=== PATIENT | female | born 1990 | race Caucasian/White ===

== ENCOUNTER 2017-04-19 15:05 | Emergency (ER) | payer MEDICAID, OTHER ==
[~2017-04-19] VITALS: Wt 59.0 kg
[2017-04-19] MEDS ORDERED: ACETAMINOPHEN 325 MG TAB PO STA (16:38)
--- NOTE | 2017-04-19 16:44 | ERD ---
ER Documentation Chief Complaint Date/Time DATE: 04/19/17 Chief Complaint Pelvic pain HPI The patient is a 26-year-old female, A0, who presents to the Emergency Department with complaint of pelvic pain. The patient reports that her discomfort began approximately two weeks ago, with onset of pressure-like pain to the suprapubic abdomen. Since, she has been experiencing intermittent cramping sensation to both the right and left pelvic regions. She notes that since yesterday the cramping sensations have been occurring more frequently, and therefore she decided to present to the Emergency Department for further evaluation. The patient denies any current vaginal bleeding, but admits to spotting last week. After onset of the spotting, she was seen by her JEWELER APPRENTICE and determined to have a urinary tract infection for which she was placed on a course of antibiotics. The patient reports that she completed the course of antibiotics as directed with no complication. She denies any further bleeding or any new vaginal discharge. Denies fevers, sweats, chills, vomiting, diarrhea , dysuria, hematuria, flank pain. The patient's last menstrual period was 2016 and she believes that she is approximately 7 weeks . She has not yet had an ultrasound during this . The patient also notes a history of prior ovarian cysts, and is uncertain if her current symptoms are secondary to recurrent cyst. No other complaints at this time. ROS All systems reviewed and are negative except as per history of present illness. Allergies Allergies: Coded Allergies: No Known Allergy (Unverified , 04/19/17) PMhx/Soc History of Surgery: No Anesthesia Reaction: No Hx Neurological Disorder: No Hx Respiratory Disorders: No Hx Cardiac Disorders: No Hx Psychiatric Problems: No Hx Miscellaneous Medical Probl: Yes (ovarian cysts) Hx Alcohol Use: No Hx Substance Use: No Hx Tobacco Use: No Physical Exam Vitals Vital Signs Date Time Temp Pulse Resp B/P Pulse Ox O2 Delivery O2 Flow Rate FiO2 04/19/17 20:56 97.9 74 16 113/65 100 Room Air 04/19/17 15:10 98.0 78 18 132/71 99 Physical Exam GENERAL: Well-developed, well-nourished, female, in no acute distress. HEENT: Head is normocephalic, atraumatic. No scleral pallor or icterus. Pupils equal, round and reactive to light. Extraocular movements intact. Conjunctiva pink. Moist mucous membranes. NECK: Supple. Full range of motion. RESPIRATORY: Lungs are clear to auscultation bilaterally. Equal breath sounds. Normal expiratory effort. CARDIOVASCULAR: Regular rate and rhythm. S1 and S2 normal. Distal pulses are palpable, 2+ bilaterally. Capillary refill is less than 2 seconds. GASTROINTESTINAL: Abdomen is soft, non-tender, and non-distended. No guarding, no rebound tenderness. Normal bowel sounds. FLANK: No CVA tenderness. BACK: No midline tenderness. EXTREMITIES: No clubbing, cyanosis, or edema. Normal skin perfusion. Moving all extremities. Muscle tone is normal. No focal swelling or erythema. NEUROLOGIC: The patient is alert, awake, and oriented x 3. No focal neurologic deficits. INTEGUMENT: Skin is intact. Warm and dry. PSYCHIATRIC: Cooperative. Appropriate. Result Diagram: 04/19/17 1730 Results 24 hrs Laboratory Tests Test 04/19/17 16:50 04/19/17 17:30 Urine Color YELLOW Urine Clarity SLIGHTLY CLOUDY Urine pH 5.0 Urine Specific [place] 1.033 Urine Ketones NEGATIVEmg/dL Urine Nitrite NEGATIVEmg/dL Urine Bilirubin NEGATIVEmg/dL Urine Urobilinogen NEGATIVEmg/dL Urine Leukocyte Esterase TRACELeu/ul Urine Microscopic RBC 6/HPF Urine Microscopic WBC 2/HPF Urine Squamous Epithelial Cells FEW/HPF Urine Mucus FEW/HPF Urine Hemoglobin 1+mg/dL Urine Glucose NEGATIVEmg/dL Urine Total Protein NEGATIVEmg/dl White Blood Count 9.910^3/ul Red Blood Count 4.3110^6/ul Hemoglobin 13.4g/dl Hematocrit 38.8% Mean Corpuscular Volume 90.0fl Mean Corpuscular Hemoglobin 31.1pg Mean Corpuscular Hemoglobin Concent 34.5g/dl Red Cell Distribution Width 12.1% Platelet Count 60926^3/UL Mean Platelet Volume 9.0fl Neutrophils % 67.4% Lymphocytes % 25.2% Monocytes % 6.0% Eosinophils % 0.4% Basophils % 0.7% Nucleated Red Blood Cells % 0.0/100WBC Neutrophils # 6.710^3/ul Lymphocytes # 2.510^3/ul Monocytes # 0.610^3/ul Eosinophils # 0.010^3/ul Basophils # 0.110^3/ul Nucleated Red Blood Cells # 0.010^3/ul Beta HCG, Quantitative 798857.0mIU/ml Current Medications Medications (Trade) Dose Ordered Sig/Diane Route PRN Reason Start Time Stop Time Status Last Admin Dose Admin Acetaminophen (Tylenol Tab) 650 mg ONCE STAT PO 04/19/17 16:38 04/19/17 16:40 DC 04/19/17 17:31 Procedures/MDM DIAGNOSTIC TESTS AND INTERPRETATION: PROCEDURE: OBSTETRICAL ULTRASOUND WITH ENDOVAGINAL IMAGES CLINICAL INDICATION: Pelvic pain TECHNIQUE: Multiple sonographic images of the pelvis were obtained utilizing a transabdominal and endovaginal technique. The images were reviewed on a PACS workstation. COMPARISON: None. LMP: 02/27/2017 FINDINGS: There is a single live intrauterine with heart rate of 154 beats per minute, mean sac diameter of 2.43 cm, yolk sac, and crown-rump length of 0.98 cm which is consistent with a gestational age of 7 weeks, 1 day . The estimated date of delivery by ultrasound is 12/05/2017 . The estimated gestational age by LMP is 7 weeks, 2 days . The estimated date of delivery by LMP is 12/04/2017 . The right ovary measures 2.5 x 2.4 x 2.6 cm. The left ovary is not visualized. There is normal vascular flow in the right ovary. There is a 2 cm complex cystic lesion with low level internal echoes in the right ovary which may be a hemorrhagic/corpus luteal cyst. No significant pelvic free fluid is identified. IMPRESSION: Single live intrauterine consistent with a gestational age of 7 weeks , 1 day . The estimated date of delivery is 12/05/2017 . Dating by ultrasound is within 1 day of dating by LMP. No subchorionic hemorrhage is identified. 2 cm complex cystic lesion in the right ovary may be a hemorrhagic/corpus luteal cyst. Nonvisualization of the left ovary. Physician Alex Date Time Electronically viewed and signed by Physician Alex on 04/19/2017 17:16 EMERGENCY DEPARTMENT COURSE: The patient was stable throughout the ED course. Laboratory work and diagnostic imaging performed. Tylenol was administered. After rest, the patient reports no new complaints and decreased pain. CONSULTATION: 8:41 PM: The patient's case was reviewed and discussed with Dr. Mora, JEWELER APPRENTICE on-call, including patient's recent history, clinical presentation, laboratory results and imaging findings (specifically, findings of IUP with complex cystic lesion). Dr. Mora recommends that the patient be discharged home to follow up with JEWELER APPRENTICE. She states that this is likely a normal . However, recommends providing strict return precautions. Given that the cystic lesion is noted to be within the ovary, low suspicion for heterotopic . The patient's case was reviewed and discussed with ED supervising physician, Dr. Isbell, who recommends that the patient be discharged home to follow up with JEWELER APPRENTICE as an outpatient. MEDICAL DECISION MAKING: This is a 26-year-old female presenting to the emergency department complaining of pelvic pain. On physical examination, the patient had no tenderness to palpation, no guarding, no rebound tenderness. She no tenderness at McBurney's point. No peritoneal signs. Vital signs are stable. The differential diagnosis includes, but is not limited to, molar , cholecystitis, ectopic , heterotopic , gastroenteritis, pancreatitis, appendicitis, hepatitis, bowel obstruction, diverticulitis, inflammatory bowel disease, irritable bowel syndrome, hernia, peptic ulcer disease, pyelonephritis, cystitis, HELLP syndrome, , ovarian torsion, ovarian cyst, endometriosis, PID, cervicitis, TOA. CBC reveals no leukocytosis. Hemoglobin and hematocrit are stable, no indication of severe anemia. No thrombocytopenia. Rh (+). Beta hCG is 114,640. Urinalysis showed on trace urine leukocyte esterase, but no significant bacteria or WBC, negative nitrites. Doubt urinary tract infection. Urine culture sent. Ultrasound revealed a single live intrauterine with an estimated gestational age of 7 weeks 1 days. heart tones were noted. No indication of miscarriage/. Additionally, a 2 cm complex cystic lesion was seen in the right ovary. After rest and administration of Tylenol, the patient reports no new complaints, and significantly decreased pain. Upon my review and interpretation of the patient's presentation overall ER course, I believe the patient's symptoms most consistent with pelvic pain during and ovarian cyst. There is no current indication of pyelonephritis, or acute/surgical abdomen. At this time, the patient is in stable condition with stable vital signs, and therefore can be discharged home with strict return precautions for signs of deteriorating or worsening condition. The patient is advised to follow-up with her JEWELER APPRENTICE within 1-2 days for reevaluation and further management, or return to the ER sooner for any new or worsening symptoms. She was given a copy of all of her results. I shared my medical decision-making plan with the patient at length and in great detail, and she verbally understands and agrees with the plan for further observation and care as an outpatient. At the time of discharge, all questions were answered. Departure Diagnosis: Primary Impression: Pelvic pain during in first trimester, antepartum Additional Impression: Right ovarian cyst Condition: Stable Patient Instructions: Ovarian Cyst, Pelvic Pain In : Unclear (2-3 Trimester), What Are Ovarian Cysts? Additional Instructions: Llame al doctor MAANA y murphy albin SONIA PARA DENTRO DE 1-2 GREEN.Dgale a la secretaria que nosotros le instruimos hacer esta sonia.Avise o llame si rose condicin se empeora antes de la sonia. Regresa aqui si peor o no mejor. NICHOLE WEST PA-C Apr 19, 2017 16:44
[2017-04-19 17:15] LABS: ADD UMIC YES; UR ASCORBIC ACID 40 mg/dL (NEGATIVE); UR BILIRUBIN (Dip) NEGATIVE (NEGATIVE); UR BLOOD (Dip) 1+ mg/dL (NEGATIVE); UR CLARITY SLIGHTLY CLOUDY (CLEAR); UR COLOR YELLOW (YELLOW); UR GLUCOSE (Dip) NEGATIVE (NEGATIVE); UR KETONES (Dip) NEGATIVE (NEGATIVE); UR LEUKOCYTE ESTERASE (Dip) TRACE Leu/ul (NEGATIVE); UR MUCUS FEW /HPF (NONE SEEN); UR NITRITE (Dip) NEGATIVE (NEGATIVE); UR RBC 6 /HPF (0-5); UR SPECIFIC GRAVITY (Dip) 1.033 (1.003-1.030); UR SQUAMOUS EPITHELIAL CELL FEW /HPF (FEW); UR TOTAL PROTEIN (Dip) NEGATIVE (NEGATIVE); UR UROBILINOGEN (Dip) NEGATIVE (NEGATIVE)
--- NOTE | 2017-04-19 17:16 | RADRPT ---
PROCEDURE: OBSTETRICAL ULTRASOUND WITH ENDOVAGINAL IMAGES CLINICAL INDICATION: pelvic pain, vaginal bleeding TECHNIQUE: Multiple sonographic images of the pelvis were obtained utilizing a transabdominal and endovaginal technique. The images were reviewed on a PACS workstation. COMPARISON: None. LMP: 02/27/2017 FINDINGS: There is a single live intrauterine with heart rate of 154 beats per minute, mean sa c diameter of 2.43 cm, yolk sac, and crown-rump length of 0.98 cm which is consistent with a gestati onal age of 7 weeks, 1 day . The estimated date of delivery by ultrasound is 12/05/2017 . The estimated gestational age by LMP is 7 weeks, 2 days . The estimated date of delivery by LMP is 12/04/2017 . The right ovary measures 2.5 x 2.4 x 2.6 cm. The left ovary is not visualized. There is normal vascu lar flow in the right ovary. There is a 2 cm complex cystic lesion with low level internal echoes in the right ovary which may be a hemorrhagic/corpus luteal cyst. No significant pelvic free fluid is identified. IMPRESSION: Single live intrauterine consistent with a gestational age of 7 weeks, 1 day . The estimated date of delivery is 12/05/2017 . Dating by ultrasound is within 1 day of dating by LMP. No subchorionic hemorrhage is identified. 2 cm complex cystic lesion in the right ovary may be a hemorrhagic/corpus luteal cyst. Nonvisualization of the left ovary. RPTAT: EE Physician Alex Date Time Electronically viewed and signed by Physician Alex on 04/19/2017 17:16 /
[2017-04-19 17:37] LABS: BASOPHIL # 0.1 10^3/ul (0.0-0.1); BASOPHILS % 0.7 % (0.0-2.0); EOSINOPHILS % 0.4 % (0.0-7.0); HEMATOCRIT 38.8 % (37.0-47.0); HEMOGLOBIN 13.4 g/dl (12.0-16.0); LYMPHOCYTES # 2.5 10^3/ul (0.8-2.9); LYMPHOCYTES % 25.2 % (15.0-51.0); MEAN CORPUSCULAR HEMOGLOBIN 31.1 pg (29.0-33.0); MEAN CORPUSCULAR HGB CONC 34.5 g/dl (32.0-37.0); MONOCYTE # 0.6 10^3/ul (0.3-0.9); NEUTROPHIL # 6.7 10^3/ul (1.6-7.5); NEUTROPHILS % 67.4 % (39.0-77.0); PLATELET COUNT 389 10^3/UL (140-415); RED BLOOD COUNT 4.31 10^6/ul (4.20-5.40); RED CELL DISTRIBUTION WIDTH 12.1 % (11.5-14.5); WHITE BLOOD COUNT 9.9 10^3/ul (4.8-10.8)
[2017-04-19 20:56] VITALS: BP 113/65; PULSE 74; RESP 16; TEMP 97.9
== END 2017-04-19 20:56 | disposition home or self-care (01) ==
LOC: FTE 15:05
DX: O26.891 Other specified pregnancy related conditions, first trimester (principal); R10.2 Pelvic and perineal pain; O34.81 Maternal care for other abnormalities of pelvic organs, first trimester; Z3A.01 Less than 8 weeks gestation of pregnancy
CPT/HCPCS: 76801; 81001; 84702; 85025; 86900; 86901; 87086; Z7502; Z7610

== ENCOUNTER 2017-05-15 20:25 | Emergency (ER) | payer MEDICAID ==
[~2017-05-15] VITALS: Ht 160 cm; Wt 61.5 kg
[2017-05-15 20:27] VITALS: Ht 160 cm; Wt 61.5 kg
--- NOTE | 2017-05-15 20:41 | ERD ---
ER Documentation Chief Complaint Date/Time DATE: 05/15/17 TIME: 20:40 Chief Complaint VAG BLEED TODAY. 11 WEEKS HPI 26-year-old female A0 approximately 11 weeks presents with vaginal bleeding that started yesterday with left-sided pelvic pain. She states that she had some light to medium bleeding, and reports that the bleeding has stopped however she continues to have some pelvic pain on the left side. She has had an ultrasound which she states was normal, she does not recall her DIV[employer] LAWYER's name. Her last menstrual period was on February 27, 2017. She has not had any fevers, chills, chest pain, dizziness. ROS All systems reviewed and are negative except as per history of present illness. Medications Home Meds Active Scripts Nitrofurantoin Monohyd Macrocr* (Macrobid*) 100 Mg Capsr, 100 MG PO BID for 5 Days, CAP Prov:GONZALO LOUIS PA-C 05/15/17 Allergies Allergies: Coded Allergies: No Known Allergy (Unverified , 05/15/17) PMhx/Soc Hx Miscellaneous Medical Probl: Yes (ovarian cysts) Physical Exam Vitals Vital Signs Date Time Temp Pulse Resp B/P Pulse Ox O2 Delivery O2 Flow Rate FiO2 05/15/17 20:27 99.7 102 18 144/71 99 Physical Exam General: Well-developed, well-nourished. The patient appears in no acute distress. HEENT: Head is normocephalic, atraumatic. No scleral icterus. Neck: Supple. Nontender. Lungs: Clear to auscultation. Normal air movement. Heart: Regular rate and rhythm. S1 and S2 are normal. No murmurs, gallops, or rubs. Abdomen: Nondistended. Soft, nontender, no masses, no rebound or guarding. Extremities: No clubbing or cyanosis. Moving extremities x 4. No weakness. Neurologic: Alert and oriented 3. No focal deficits. Normal speech and gait. Skin: Normal turgor. No rash or lesions. Result Diagram: 05/15/172044 Results 24 hrs Laboratory Tests Test 05/15/17 20:44 05/15/17 20:45 Urine Color YELLOW Urine Clarity SLIGHTLY CLOUDY Urine pH 7.0 Urine Specific [place] 1.008 Urine Ketones NEGATIVEmg/dL Urine Nitrite NEGATIVEmg/dL Urine Bilirubin NEGATIVEmg/dL Urine Urobilinogen NEGATIVEmg/dL Urine Leukocyte Esterase TRACELeu/ul Urine Microscopic RBC 1/HPF Urine Microscopic WBC 2/HPF Urine Squamous Epithelial Cells MODERATE/HPF Urine Hemoglobin 2+mg/dL Urine Glucose NEGATIVEmg/dL Urine Total Protein NEGATIVEmg/dl White Blood Count 10.710^3/ul Red Blood Count 4.0610^6/ul Hemoglobin 12.2g/dl Hematocrit 35.8% Mean Corpuscular Volume 88.2fl Mean Corpuscular Hemoglobin 30.0pg Mean Corpuscular Hemoglobin Concent 34.1g/dl Red Cell Distribution Width 12.3% Platelet Count 45430^3/UL Mean Platelet Volume 8.8fl Neutrophils % 62.3% Lymphocytes % 31.3% Monocytes % 4.6% Eosinophils % 0.8% Basophils % 0.7% Nucleated Red Blood Cells % 0.0/100WBC Neutrophils # (Manual) 6.710^3/ul Lymphocytes # 3.410^3/ul Monocytes # 0.510^3/ul Eosinophils # 0.110^3/ul Basophils # 0.110^3/ul Nucleated Red Blood Cells # 0.010^3/ul Beta HCG, Quantitative 67244.0mIU/ml PROCEDURE: US OB. CLINICAL INDICATION: Vaginal bleeding. Positive TECHNIQUE: Transabdominal and transvaginal views of the pelvis are available for review. COMPARISON: 04/19/2017 FINDINGS: Uterus: No evidence of masses and normal in size estimated at 11.3 x 7.9 x 7.6 cm. Endometrial cavity: Intrauterine gestational sac, yolk sac and pole are present with the following information: [place]-rump length: 4.45 cm heart rate: 176 bpm Gestational sac: 4.66 cm Ultrasound estimated gestational age: 11 weeks Thin linear of subchorionic hemorrhage is no visible estimated at 9 x 2 mm Right ovary/adnexa: Ovarian size is normal estimated at 4 x 2 x 1.9 cm. No ovarian or adnexal mass lesion is seen. Probable corpus luteum cyst of the right ovary not significantly change estimated at 1.7 x 1.3 x 0.9 cm. Left ovary/adnexa: Ovarian size normal estimated at 2.8 x 2.4 x 2 cm. No ovarian or adnexal mass lesion is seen. Cul-de-sac: There is no free fluid. RPTAT:HJJR IMPRESSION: 1. Single viable intrauterine with an estimated gestational age of 11 weeks, appropriate interval growth compared to the study of 04/19/2017 with the estimated date of delivery 12/04/2017. 2. Tiny thin subchorionic hemorrhage is now demonstrated. 3. No significant interval change in right ovarian cyst. Signed By: Jean-Pierre Waggoner D.O 05/15/2017 10:43:42 PM Procedures/MDM 26-year-old female presents with a history of vaginal bleeding that occurred briefly with left-sided pelvic pain. Patient's ultrasound shows a single live intrauterine , there is no evidence of ectopic or adnexal masses. There is evidence of his very small subchorionic hemorrhage on ultrasound I can explain the patient's bleeding. Vital signs are stable, she is hemodynamically stable as well. She is type and Rh+ without indication for RhoGam at this time. She is to follow-up with her OB for recheck in 3-4 days. Departure Diagnosis: Primary Impression: Vaginal bleeding in patient at less than 20 weeks gestation Additional Impression: Subchorionic hemorrhage Condition: GONZALO Villegas PA-C May 15, 2017 20:40
[2017-05-15 20:57] LABS: BASOPHIL # 0.1 10^3/ul (0.0-0.1); BASOPHILS % 0.7 % (0.0-2.0); EOSINOPHILS # 0.1 10^3/ul (0.0-0.5); EOSINOPHILS % 0.8 % (0.0-7.0); HEMATOCRIT 35.8 % (37.0-47.0); HEMOGLOBIN 12.2 g/dl (12.0-16.0); LYMPHOCYTES # 3.4 10^3/ul (0.8-2.9); LYMPHOCYTES % 31.3 % (15.0-51.0); MEAN CORPUSCULAR HGB CONC 34.1 g/dl (32.0-37.0); MEAN CORPUSCULAR VOLUME 88.2 fl (82.0-101.0); MEAN PLATELET VOLUME 8.8 fl (7.4-10.4); MONOCYTE # 0.5 10^3/ul (0.3-0.9); MONOCYTES % 4.6 % (0.0-11.0); NEUTROPHILS % 62.3 % (39.0-77.0); PLATELET COUNT 332 10^3/UL (140-415); RED BLOOD COUNT 4.06 10^6/ul (4.20-5.40); RED CELL DISTRIBUTION WIDTH 12.3 % (11.5-14.5); WHITE BLOOD COUNT 10.7 10^3/ul (4.8-10.8)
[2017-05-15 20:57] LABS: ADD UMIC YES; UR ASCORBIC ACID NEGATIVE (NEGATIVE); UR BILIRUBIN (Dip) NEGATIVE (NEGATIVE); UR BLOOD (Dip) 2+ mg/dL (NEGATIVE); UR CLARITY SLIGHTLY CLOUDY (CLEAR); UR COLOR YELLOW (YELLOW); UR GLUCOSE (Dip) NEGATIVE (NEGATIVE); UR KETONES (Dip) NEGATIVE (NEGATIVE); UR LEUKOCYTE ESTERASE (Dip) TRACE Leu/ul (NEGATIVE); UR NITRITE (Dip) NEGATIVE (NEGATIVE); UR RBC 1 /HPF (0-5); UR SPECIFIC GRAVITY (Dip) 1.008 (1.003-1.030); UR SQUAMOUS EPITHELIAL CELL MODERATE /HPF (FEW); UR TOTAL PROTEIN (Dip) NEGATIVE (NEGATIVE); UR UROBILINOGEN (Dip) NEGATIVE (NEGATIVE)
[2017-05-15] MEDS ORDERED: NITR-58 PO (22:19)
[2017-05-15 23:23] VITALS: BP 144/86; PULSE 83; RESP 17; TEMP 98.2
--- NOTE | 2017-05-16 09:58 | RADRPT ---
PROCEDURE: US OB. CLINICAL INDICATION: Vaginal bleeding. Positive TECHNIQUE: Transabdominal and transvaginal views of the pelvis are available for review. COMPARISON: 04/19/2017 FINDINGS: Uterus: No evidence of masses and normal in size estimated at 11.3 x 7.9 x 7.6 cm. Endometrial cavity: Intrauterine gestational sac, yolk sac and pole are present with the foll owing information: [place]-rump length:4.45 cm heart rate:176 bpm Gestational sac:4.66 cm Ultrasound estimated gestational age:11 weeks Thin linear of subchorionic hemorrhage is no visible estimated at 9 x 2 mm Right ovary/adnexa: Ovarian size is normal estimated at 4 x 2 x 1.9 cm. No ovarian or adnexal mass lesion is seen. Probable corpus luteum cyst of the right ovary not significantly change estimated a t 1.7 x 1.3 x 0.9 cm. Left ovary/adnexa: Ovarian size normal estimated at 2.8 x 2.4 x 2 cm. No ovarian or adnexal mass le ryan is seen. Cul-de-sac: There is no free fluid. RPTAT:HJJR IMPRESSION: 1. Single viable intrauterine with an estimated gestational age of 11 weeks, appropriate interval growth compared to the study of 04/19/2017 with the estimated date of delivery 12/04/2017. 2. Tiny thin subchorionic hemorrhage is now demonstrated. 3. No significant interval change in right ovarian cyst. Physician Nishi Date Time Electronically viewed and signed by Physician Nishi on 05/15/2017 22:43 /
== END 2017-05-15 23:23 | disposition home or self-care (01) ==
LOC: FTE 20:25
DX: O34.81 Maternal care for other abnormalities of pelvic organs, first trimester (principal); R10.2 Pelvic and perineal pain; Z3A.11 11 weeks gestation of pregnancy
CPT/HCPCS: 36415; 76801; 81001; 84702; 85025; 86900; 86901; Z7502

== ENCOUNTER 2017-08-07 16:26 | Outpatient (CLI) | payer MEDICAID, OTHER ==
[~2017-08-07] VITALS: Ht 152.4 cm; Wt 62.5 kg
[~2017-08-07 16:26] MED LIST: NITR-58 PO
[2017-08-07 16:40] VITALS: Ht 152.4 cm; Wt 62.5 kg
[2017-08-07 16:41] VITALS: BP 121/60
[2017-08-07] MEDS ORDERED: PREN1TAB17 PO (16:43)
--- NOTE | 2017-08-07 18:06 | RADRPT ---
PROCEDURE: US OB. CLINICAL INDICATION: Spotting TECHNIQUE: Transabdominal views of the pelvis are available for review. COMPARISON: None. FINDINGS: The cervix is closed and measures 5.0 cm in length. There is a single intrauterine gestation in a breech position, slightly to maternal left. The heart rate is present at 148 bpm. The placenta is posterior. There is no evidence of placenta previa or a placental abruption. There is a normal amount of amniotic fluid with a maximum vertical pocket of 7.0 cm. RPTAT: AA IMPRESSION: The cervix is closed and measures 5.0 cm in length. Normal amount of amniotic fluid. Breech presentation, slightly to maternal left. Physician Alex Date Time Electronically viewed and signed by Wellington Arechiga Physician on 08/07/2017 18:06 /
--- NOTE | 2017-08-07 19:21 | TRIAGE ---
OB Triage Datetime Report Generated by CPN: 08/07/2017 19:20 Datetime: 08/07/2017 19:00 Stage of : OB Triage Datetime: 08/07/2017 18:30 Monitor Mode: External US Datetime: 08/07/2017 17:51 Comments: US AT BEDSIDE Datetime: 08/07/2017 16:46 Stage of : OB Triage Assessment Type: Triage Maternal Assessment Level of Consciousness: Fully Conscious DTR's/Clonus: DTRs 2+; No Clonus Headache: Denies Blurred Vision: No Respiratory Effort: Unlabored; Regular Rhythm; Equal Expansion Breath Sounds, Left: Clear and Equal Breath Sounds, Right: Clear and Equal Nausea/Vomiting: Denies RUQ Epigastric Pain: Denies Lower Extremities Edema: None Degree: None Upper Extremities Edema: None Degree: None Facial Edema: None Temperature Route: Oral Fall Risk Assessment History of Falling: (0) No Secondary Diagnosis: (0) No Ambulatory Aid: (0) Bedrest/Nurse Assist IV Therapy: (0) No Gait: (0) Normal/Bedrest/Immobile Mental Status: (0) Oriented to Own Ability Fall Score: 0 Fall Risk Score Definition: No Risk: No action required Labor Evaluation Frequency: 0 Monitor Mode: External Heart Rate FHR Baseline Rate: 130 Monitor Mode: External US Variability: Moderate 6-25 bpm Accelerations: 15X15 Decelerations: None Category: Category I Pain Assessment Pain Scale: 3 Pain Presence: Intermittent Pain Type: Cramping Pain Location: Abdomen Datetime: 08/07/2017 16:45 Time of Arrival: 08/07/2017 16:17 EGA: 23.1 Arrived By: Ambulatory Arrived From: Dr. Harden Chief Complaint: SENT FROM CLINIC ABDOMINAL PAIN, SPOTTING AND PROTIEN IN URINE Movement: Present Contractions: Denies/Absent Rupture of Membranes: Denies Vaginal Bleeding: Scant Vaginal Discharge: Denies Recent Sexual Intercouse: Yes Abdominal Trauma: Not Applicable Patient Complaints: Cramping; Other Time Provider Notified: 08/07/2017 17:31 Provider Notified: DR. PATEL Initial Plan: [id number] CALL
--- NOTE | 2017-08-07 23:00 | PN ---
Triage Information Date/Time 08/07/2017 Reason for visit: Vag spotting / bleeding Weeks of Gestation 23 weeks and 4 days /Para Diabetes: none Hypertention: none Additional information 26 years old wtih IUP at 23 weeks and 4/ 7 with complaint of abdominal pain and spotting yesterday that resolved. Denies any LOF, contraction and bleeding today. Denies any other symptoms. Patient was seen in the clinic today and was sent to L&D for evaluation. Objective Vital Signs Date Time Temp Pulse Resp B/P Pulse Ox O2 Delivery O2 Flow Rate FiO2 08/07/17 16:41 98.5 121/60 Room Air Heart Rate: 130's Contractions: None Exam GA: A&O,. NAD Abdomen: Soft, Gravid. Fundal Heoght consistent with GA No tenderness, no rebound tenderness, No CVA no suprapubic tenderness, Extremities: No calf tendernss, no click, no edema. No cord palpable Results/Medications Results 24 hrs Laboratory Tests Test 08/07/17 17:20 Urine Color STRAW Urine Clarity CLEAR Urine pH 6.0 Urine Specific [place] 1.010 Urine Ketones NEGATIVE Urine Nitrite NEGATIVE Urine Bilirubin NEGATIVE Urine Urobilinogen NEGATIVE Urine Leukocyte Esterase NEGATIVE Urine Microscopic RBC 1 Urine Microscopic WBC 0 Urine Squamous Epithelial Cells FEW Urine Bacteria FEW A Urine Mucus FEW A Urine Hemoglobin 1+ H Urine Glucose NEGATIVE Urine Total Protein NEGATIVE Imaging Results PROCEDURE: US OB. CLINICAL INDICATION: Spotting TECHNIQUE: Transabdominal views of the pelvis are available for review. COMPARISON: None. FINDINGS: The cervix is closed and measures 5.0 cm in length. There is a single intrauterine gestation in a breech position, slightly to maternal left. The heart rate is present at 148 bpm. The placenta is posterior. There is no evidence of placenta previa or a placental abruption. There is a normal amount of amniotic fluid with a maximum vertical pocket of 7.0 cm. RPTAT: AA IMPRESSION: The cervix is closed and measures 5.0 cm in length. Normal amount of amniotic fluid. Breech presentation, slightly to maternal left. Disposition: Discharge Assessment/Plan IUP at 23 weeks and 4/7 Spotting, Resolved No Evidence of PTL CL: 5 cm UA negative RH positive Patient had been mornitored in triage. no evidence of bleeding , contractions or PTL or abruption seen. DC home Strict PTL precaution ,and bleeding precaution and follow up in 24 - 48 hours with her OB recommended HAYLEY JORGE MD Aug 07, 2017 23:00
== END 2017-08-07 19:20 | disposition home or self-care (01) ==
LOC: OBT 16:26 → L-D 16:29 → OBT 19:20
PROVIDERS: ATTEND Obstetrics & Gynecology
DX: O46.8X2 Other antepartum hemorrhage, second trimester (principal); Z3A.23 23 weeks gestation of pregnancy
CPT/HCPCS: 76815; 76817; 81001; Z7500; G0463

== ENCOUNTER 2017-09-19 15:56 | Outpatient (CLI) | payer MEDICAID ==
[~2017-09-19] VITALS: Ht 152.4 cm; Wt 65.4 kg
[~2017-09-19 15:56] MED LIST changes: -NITR-58 PO; +PREN1TAB17 PO
[2017-09-19 16:17] VITALS: BP 114/71; PULSE 99; RESP 18
[2017-09-19 16:18] VITALS: Ht 152.4 cm; Wt 65.4 kg
[2017-09-19 16:47] LABS: ADD UMIC YES; UR ASCORBIC ACID NEGATIVE (NEGATIVE); UR BACTERIA FEW /HPF (NONE SEEN); UR BILIRUBIN (Dip) NEGATIVE (NEGATIVE); UR BLOOD (Dip) 2+ mg/dL (NEGATIVE); UR CLARITY CLEAR (CLEAR); UR COLOR YELLOW (YELLOW); UR GLUCOSE (Dip) NEGATIVE (NEGATIVE); UR KETONES (Dip) NEGATIVE (NEGATIVE); UR LEUKOCYTE ESTERASE (Dip) NEGATIVE Leu/ul (NEGATIVE); UR MUCUS FEW /HPF (NONE SEEN); UR NITRITE (Dip) NEGATIVE (NEGATIVE); UR RBC 1 /HPF (0-5); UR SQUAMOUS EPITHELIAL CELL FEW /HPF (FEW); UR TOTAL PROTEIN (Dip) NEGATIVE (NEGATIVE); UR UROBILINOGEN (Dip) NEGATIVE (NEGATIVE)
[2017-09-19] MEDS ORDERED: FER325 PO (17:04)
[2017-09-19] MEDS ORDERED: CALC-143 PO (17:05)
[2017-09-19] MEDS ORDERED: FOLI-49 PO (17:05)
--- NOTE | 2017-09-19 17:26 | RADRPT ---
PROCEDURE: US biophysical profile. CLINICAL INDICATION: Decreased motion. TECHNIQUE: Multiple sonographic images of the uterus were obtained. The images were revi ewed on a PACS workstation. COMPARISON: No prior studies are available for comparison. FINDINGS: There is a single live intrauterine gestation. heart rate is 141 beats per minute. The position is transverse with head to maternal left. The placenta is posterior grade 1 with no abruption or previa. The SHAHID is 20.4 cm. (Normal = 5-20 cm.) Breathing Movement: 2 Gross Body Movement: 2 Tone: 2 Qualitative Amniotic Fluid Volume: 2 TOTAL: 8 IMPRESSION: 1. The biophysical score is 8/8. RPTAT: QQ .Dale Gudino MD, MD Date Time Electronically viewed and signed by .Dale Gudino MD, on 09/19/2017 17:26 .R/
[2017-09-19 17:39] LABS: BASOPHILS % 0.4 % (0.0-2.0); EOSINOPHILS % 0.3 % (0.0-7.0); HEMATOCRIT 33.9 % (37.0-47.0); LYMPHOCYTES # 1.9 10^3/ul (0.8-2.9); LYMPHOCYTES % 18.4 % (15.0-51.0); MEAN CORPUSCULAR HEMOGLOBIN 31.6 pg (29.0-33.0); MEAN CORPUSCULAR HGB CONC 35.4 g/dl (32.0-37.0); MEAN CORPUSCULAR VOLUME 89.2 fl (82.0-101.0); MEAN PLATELET VOLUME 9.4 fl (7.4-10.4); MONOCYTE # 0.6 10^3/ul (0.3-0.9); NEUTROPHIL # 7.6 10^3/ul (1.6-7.5); NEUTROPHILS % 74.4 % (39.0-77.0); PLATELET COUNT 292 10^3/UL (140-415); RED CELL DISTRIBUTION WIDTH 12.7 % (11.5-14.5); WHITE BLOOD COUNT 10.2 10^3/ul (4.8-10.8)
[2017-09-19 18:08] LABS: ALBUMIN 3.1 g/dl (3.3-4.9); ALBUMIN/GLOBULIN RATIO 0.86; BILIRUBIN,INDIRECT 0.2 mg/dl (0-1.1); BILIRUBIN,TOTAL 0.2 mg/dl (0.2-1.3); CALCIUM 8.6 mg/dl (8.4-10.2); CREATININE 0.54 mg/dl (0.44-1.00); POTASSIUM 3.9 mmol/L (3.5-5.1); TOTAL PROTEIN 6.7 g/dl (6.1-8.1); URIC ACID 3.3 mg/dl (3.1-7.9)
--- NOTE | 2017-09-19 21:43 | PN ---
Triage Information Date/Time 09/19/17 Reason for visit: sent due to maternal tachycardia and elevated BP and headache Weeks of Gestation 29w2d /Para primigravida Diabetes: none Hypertention: none Additional information BP 110/70 and vicinity 100/71 HR 93-100 during observation for 5hrs Objective Vital Signs Date Time Temp Pulse Resp B/P Pulse Ox O2 Delivery O2 Flow Rate FiO2 09/19/17 16:17 97.4 99 18 114/71 Room Air Contractions: None Results/Medications Result Diagram: 09/19/17 1650 09/19/17 1650 Results 24 hrs Laboratory Tests Test 09/19/17 16:05 09/19/17 16:50 Urine Color YELLOW Urine Clarity CLEAR Urine pH 6.0 Urine Specific [place] 1.010 Urine Ketones NEGATIVE Urine Nitrite NEGATIVE Urine Bilirubin NEGATIVE Urine Urobilinogen NEGATIVE Urine Leukocyte Esterase NEGATIVE Urine Microscopic RBC 1 Urine Microscopic WBC 1 Urine Squamous Epithelial Cells FEW Urine Bacteria FEW A Urine Mucus FEW A Urine Hemoglobin 2+ H Urine Glucose NEGATIVE Urine Total Protein NEGATIVE White Blood Count 10.2 Red Blood Count 3.80 L Hemoglobin 12.0 Hematocrit 33.9 L Mean Corpuscular Volume 89.2 Mean Corpuscular Hemoglobin 31.6 Mean Corpuscular Hemoglobin Concent 35.4 Red Cell Distribution Width 12.7 Platelet Count 292 Mean Platelet Volume 9.4 Neutrophils % 74.4 Lymphocytes % 18.4 Monocytes % 6.0 Eosinophils % 0.3 Basophils % 0.4 Nucleated Red Blood Cells % 0.0 Neutrophils # 7.6 H Lymphocytes # 1.9 Monocytes # 0.6 Eosinophils # 0.0 Basophils # 0.0 Nucleated Red Blood Cells # 0.0 Sodium Level 137 Potassium Level 3.9 Chloride Level 106 Carbon Dioxide Level 23 Anion Gap 12 Blood Urea Nitrogen 6 L Creatinine 0.54 Glucose Level 76 Uric Acid 3.3 Calcium Level 8.6 Total Bilirubin 0.2 Direct Bilirubin 0.00 Indirect Bilirubin 0.2 Aspartate Amino Transf (AST/SGOT) 20 Alanine Aminotransferase (ALT/SGPT) 26 Alkaline Phosphatase 139 H Total Protein 6.7 Albumin 3.1 L Globulin 3.60 H Albumin/Globulin Ratio 0.86 Imaging Results BPP 8/8 SHAHID 20.4 Assessment/Plan IUP 29w2d normotensive normal HR PLAN discharge home and f/u at her OB VIKTOR DARBY MD Sep 19, 2017 21:43
--- NOTE | 2017-09-19 21:48 | PN ---
Triage Information Date/Time 09/19/17 Reason for visit: maternal tachycardia and elevated BP Weeks of Gestation 29w2d /Para primigravida Diabetes: none Hypertention: none Objective Vital Signs Date Time Temp Pulse Resp B/P Pulse Ox O2 Delivery O2 Flow Rate FiO2 09/19/17 16:17 97.4 99 18 114/71 Room Air Heart Rate: 150's Contractions: None Results/Medications Result Diagram: 09/19/17 1650 09/19/17 165 Results 24 hrs Laboratory Tests Test 09/19/17 16:05 09/19/17 16:50 Urine Color YELLOW Urine Clarity CLEAR Urine pH 6.0 Urine Specific [place] 1.010 Urine Ketones NEGATIVE Urine Nitrite NEGATIVE Urine Bilirubin NEGATIVE Urine Urobilinogen NEGATIVE Urine Leukocyte Esterase NEGATIVE Urine Microscopic RBC 1 Urine Microscopic WBC 1 Urine Squamous Epithelial Cells FEW Urine Bacteria FEW A Urine Mucus FEW A Urine Hemoglobin 2+ H Urine Glucose NEGATIVE Urine Total Protein NEGATIVE White Blood Count 10.2 Red Blood Count 3.80 L Hemoglobin 12.0 Hematocrit 33.9 L Mean Corpuscular Volume 89.2 Mean Corpuscular Hemoglobin 31.6 Mean Corpuscular Hemoglobin Concent 35.4 Red Cell Distribution Width 12.7 Platelet Count 292 Mean Platelet Volume 9.4 Neutrophils % 74.4 Lymphocytes % 18.4 Monocytes % 6.0 Eosinophils % 0.3 Basophils % 0.4 Nucleated Red Blood Cells % 0.0 Neutrophils # 7.6 H Lymphocytes # 1.9 Monocytes # 0.6 Eosinophils # 0.0 Basophils # 0.0 Nucleated Red Blood Cells # 0.0 Sodium Level 137 Potassium Level 3.9 Chloride Level 106 Carbon Dioxide Level 23 Anion Gap 12 Blood Urea Nitrogen 6 L Creatinine 0.54 Glucose Level 76 Uric Acid 3.3 Calcium Level 8.6 Total Bilirubin 0.2 Direct Bilirubin 0.00 Indirect Bilirubin 0.2 Aspartate Amino Transf (AST/SGOT) 20 Alanine Aminotransferase (ALT/SGPT) 26 Alkaline Phosphatase 139 H Total Protein 6.7 Albumin 3.1 L Globulin 3.60 H Albumin/Globulin Ratio 0.86 Imaging Results BPP8/8 SHAHID 20.4 Disposition: Discharge Assessment/Plan IUP 29w2d with normotensive normal HR PLAN discharge home RTH prn with F?U with her OB VIKTOR DARBY MD Sep 19, 2017 21:48
== END 2017-09-19 21:20 | disposition home or self-care (01) ==
LOC: OBT 15:56 → L-D 15:58 → OBT 21:20
PROVIDERS: ATTEND Obstetrics & Gynecology
DX: O26.893 Other specified pregnancy related conditions, third trimester (principal); R00.0 Tachycardia, unspecified; Z3A.29 29 weeks gestation of pregnancy
CPT/HCPCS: 76818; 80053; 81001; 84560; 85025; Z7500; G0463

== ENCOUNTER 2017-10-13 15:01 | Outpatient (CLI) | END 2017-10-13 18:00 | disposition home or self-care (01) ==